=== PATIENT | male | born 1955 | race Caucasian/White ===

== ENCOUNTER 2022-06-08 11:14 | Inpatient (IN) ==
[2022-06-08] MEDS ORDERED: SODIUM CHLORIDE 0.9% 1,000 ML IV STA (11:40)
[2022-06-08] MEDS ORDERED: ONDANSETRON 4 MG/2 ML VIAL IV STA ×2 (11:40→14:35)
[2022-06-08 12:15] LABS: Basophils # 0.1 10*3/uL (0.0-0.2); Basophils % 0.8 % (0.0-0.8); Eosinophils # 0.2 10*3/uL (0.0-0.87); Eosinophils % 1.7 % (0.00-10.9); Hematocrit 32.8 VOL% (42.0-52.0); Hemoglobin 11.1 GM/DL (14.0-18.0); Immature Granulocytes % 0.7 %; Immature Granulocytes Absolute 0.08 #; Lymphocytes # 1.5 10*3/uL (1.4-4.0); Lymphocytes % 13.3 % (21.2-54.2); Mean Corpuscular HGB Conc 33.8 GM/DL (32-36); Mean Corpuscular Volume 102.2 FL (87-102); Mean Platelet Volume 10.6 FL (9.6-12.0); Monocytes # 1.3 10*3/uL (0.11-0.8); Monocytes % 10.8 % (1.7-12.7); Neutrophils % 72.7 % (38.7-73.9); Platelet Count 53 T/CUMM (130-400); Red Blood Count 3.21 MC/CUMM (3.8-5.5); Red Cell Distribution Width 13.7 % (9.3-17.3); White Blood Count 11.62 T/CUMM (4-12)
[2022-06-08 12:32] LABS: Albumin 3.3 G/DL (3.4-5.0); Bilirubin,Total 0.7 MG/DL (0.20-1.00); Calcium 9.5 MG/DL (8.5-10.1); Osmolality,Calculated 278.7 MOS/KG (273-304); Prealbumin 10.6 MG/DL (20-40); Total Protein 7.1 G/DL (6.4-8.2)
[2022-06-08 12:57] LABS: Eosinophils 2 % (0-10); Lymphocytes 13 % (20-55); Total Cells Counted 100
[2022-06-08 13:00] LABS: Spherocytes Slight
[2022-06-08 13:01] LABS: Anisocytosis Slight; Platelet Estimate Decreased
[2022-06-08] MEDS ORDERED: HYDROmorphone 1 MG/1 ML SYRINGE IV STA (14:35)
[2022-06-08] MEDS ORDERED: ACETAMINOPHEN 325 MG TABLET PO PRN (15:07)
[2022-06-08] MEDS ORDERED: DOCUSATE SODIUM 100 MG CAPSULE PO PRN (15:07)
[2022-06-08] MEDS ORDERED: ALBUTEROL/IPRATROPIUM 3 ML NEB RESP TX PRN (15:07)
[2022-06-08] MEDS ORDERED: SIMETHICONE CHEW 125 MG TABLET PO PRN (15:07)
[2022-06-08] MEDS ORDERED: ONDANSETRON 4 MG/2 ML VIAL IV PRN (15:07)
[2022-06-08 15:41] LABS: Amylase 14 U/L (25-115)
[2022-06-08] MEDS: SODIUM CHLORIDE 0.9% 1,000 ML IV SCH (18:37)
[2022-06-08] MEDS: NICOTINE 21 MG/24 HR PATCH TRANSDERM SCH (18:37)
[2022-06-08] MEDS: CALCIUM CARBONATE CHEW 500 MG TABLET PO SCH (20:31)
[2022-06-08] MEDS: HYDROmorphone 1 MG/1 ML SYRINGE IV PRN (20:35)
[2022-06-09 01:00] LABS: Mucus,Urine Occasional /LPF (Occasional); RBC,Urine 4 /HPF (0-4); Squamous Epithelial Cell,Urine Occasional /HPF (0-10)
[2022-06-09 01:05] LABS: Bilirubin,Urine Negative (Negative); Blood, Urine Negative (Negative); Glucose,Urine (UA) Negative (Negative); Ketones,Urine Negative (Negative); Nitrite,Urine Negative (Negative); Protein,Urine 30 mg/dL (Negative); Urine Appearance Clear (Clear); Urine Color Yellow (Yellow); Urine Urobilinogen 0.2 eU/dL (<2.0); Urine pH 5.5 (4.5-8.0)
[2022-06-09] MEDS: SODIUM CHLORIDE 0.9% 1,000 ML IV SCH ×2 (01:44→09:36)
[2022-06-09] MEDS: HYDROmorphone 1 MG/1 ML SYRINGE IV PRN ×3 (03:02→16:23)
[2022-06-09 04:38] LABS: Basophils # 0.1 10*3/uL (0.0-0.2); Basophils % 0.8 % (0.0-0.8); Eosinophils # 0.2 10*3/uL (0.0-0.87); Eosinophils % 2.6 % (0.00-10.9); Hemoglobin 9.9 GM/DL (14.0-18.0); Immature Granulocytes % 0.4 %; Immature Granulocytes Absolute 0.04 #; Lymphocytes # 1.2 10*3/uL (1.4-4.0); Lymphocytes % 12.9 % (21.2-54.2); Mean Corpuscular Volume 105.3 FL (87-102); Mean Platelet Volume 10.1 FL (9.6-12.0); Monocytes # 1.1 10*3/uL (0.11-0.8); Monocytes % 12.5 % (1.7-12.7); Neutrophils % 70.8 % (38.7-73.9); Platelet Count 44 T/CUMM (130-400); Red Blood Count 2.85 MC/CUMM (3.8-5.5); Red Cell Distribution Width 13.8 % (9.3-17.3); White Blood Count 9.01 T/CUMM (4-12)
[2022-06-09 04:59] LABS: Hypochromia 1+; Macrocytosis Slight; Platelet Estimate Decreased
[2022-06-09 05:11] LABS: Albumin 2.9 G/DL (3.4-5.0); Bilirubin,Total 0.6 MG/DL (0.20-1.00); Calcium 8.3 MG/DL (8.5-10.1); Osmolality,Calculated 281.4 MOS/KG (273-304); Potassium 3.7 MMOL/L (3.5-5.1); Risk Ratio 3.15; Thyroid Stimulating Hormone 3.44 uIU/ml (0.358-3.74); Total Protein 6.5 G/DL (6.4-8.2); VLDL Cholesterol 31.6 MG/DL
[2022-06-09] MEDS ORDERED: MONTELUKAST 10 MG TABLET PO SCH (09:00)
[2022-06-09] MEDS ORDERED: METOPROLOL SUCCINATE XL 50 MG TABLET PO SCH (09:00)
[2022-06-09] MEDS: NICOTINE 21 MG/24 HR PATCH TRANSDERM SCH (09:26)
[2022-06-09] MEDS: CALCIUM CARBONATE CHEW 500 MG TABLET PO SCH (09:27)
[2022-06-09 13:29] VITALS: BP 100/55
== END 2022-06-09 17:09 | disposition home or self-care (01) | DRG 641 ==
LOC: N.ED 11:14 → N.TELES 15:07
PROVIDERS: ADMIT Internal Medicine; ATTEND Internal Medicine